=== PATIENT | female | born 1990 ===

== ENCOUNTER 2017-11-14 05:47 | Emergency (ER) | payer MEDICAID ==
[2017-11-14 05:47] VITALS: BMI 27.4
[2017-11-14 06:04] VITALS: TEMP 98.2; O2SAT 100
--- NOTE | 2017-11-14 06:21 | ED PDOC ---
"HPI: General Adult Time Seen by Provider: 11/14/17 05:49 Chief Complaint (Nursing): Abdominal Pain Chief Complaint (Provider): Pain History Per: Patient Additional History Per: EMS Additional Complaint(s): Skylar is a 27 y/o female with known opioid abuse and a history of kidney infections who was brought to the ED via EMS. According to EMS, she was unable to gain entry to her grandparent's house, so she called EMS because she wanted to come to the ER due to abdominal pain. She was walked in by EMS and immediately fell asleep in the stretcher. When asked why she came to the ER, she initially complained of right foot pain from walking in heels all day, but later complained of back pain and right flank pain. Patient is constantly changing her narrative and currently stating she can't walk to the bathroom despite walking into patient room. PMD: None Provided Past Medical History Reviewed: Historical Data, Nursing Documentation, Vital Signs Vital Signs: Last Vital Signs Temp 98.2 F 11/14/17 05:54 Pulse 77 11/14/17 05:54 Resp 17 11/14/17 05:54 BP 124/68 11/14/17 05:54 Pulse Ox 100 11/14/17 06:47 - Medical History PMH: Anxiety Denies: Diabetes, Hepatitis, HIV, HTN, Seizures, Sexually Transmitted Disease - Family History Family History: States: Unknown Family Hx - Social History Drugs: Opiates - Immunization History Hx Tetanus Toxoid Vaccination: Yes Hx Influenza Vaccination: No Hx Pneumococcal Vaccination: No - Home Medications Home Medications: Ambulatory Orders Medication Instructions Recorded oxyCODONE [oxyCODONE Immediate 30 mg PO BID 01/01/17 Release Tab] - Allergies Allergies/Adverse Reactions: Allergies Allergy/AdvReac Type Severity Reaction Status Date / Time No Known Allergies Allergy Verified 06/10/17 19:14 Review of Systems ROS Statement: Except As Marked, All Systems Reviewed And Found Negative Musculoskeletal: Positive for: Back Pain (back and right flank), Foot Pain ( right) Physical Exam - Reviewed Nursing Documentation Reviewed: Yes Vital Signs Reviewed: Yes - Physical Exam Appears: Positive for: Well, Non-toxic, No Acute Distress Head Exam: Positive for: ATRAUMATIC, NORMAL INSPECTION, NORMOCEPHALIC Skin: Positive for: Normal Color, Warm, Dry Eye Exam: Positive for: EOMI, Normal appearance, PERRL ENT: Positive for: Normal ENT Inspection Neck: Positive for: Normal, Painless ROM, Supple Cardiovascular/Chest: Positive for: Regular Rate, Rhythm. Negative for: Murmur Respiratory: Positive for: Normal Breath Sounds. Negative for: Respiratory Distress Gastrointestinal/Abdominal: Positive for: Normal Exam, Bowel Sounds, Soft. Negative for: Tenderness Back: Positive for: Normal Inspection Extremity: Positive for: Normal ROM. Negative for: Pedal Edema, Deformity Neurologic/Psych: Positive for: Alert, Oriented - ECG O2 Sat by Pulse Oximetry: 100 (RA) Pulse Ox Interpretation: Normal Medical Decision Making Medical Decision Making: Time: 6:02 Initial Impression: Malingering, Bed-Seeking Behavior, UTI Initial Plan: --Urine --Urine Dip --Tylenol Time: 6:47 --Patient is in room asleep lying flat on stomach. Patient was informed of negative udip/upreg. Patient then states that she was diagnosed with a kidney infection at [facility] despite negative urine studies. I informed the patient that the chances of having a significant kidney infection are unlikely given normal vital signs. Patient then again changes her story and states that she might be constipated from her suboxitin, states that she has not gone to the bathroom in 7 days. Will draw labs to evaluate for leukocytosis , renal sono to r/o significant kidney abnormality, and xray abd to evaluate for constipation. When I told the patient the plan, she put her jacket over herself and fell back to sleep immediately. 0700 Will endorse to day team Dr. Abdullahi. Scribe Attestation: Documented by Randal Jones, acting as a scribe for Dr. Jose Miner MD Provider Scribe Attestation: All medical record entries made by the Scribe were at my direction and personally dictated by me. I have reviewed the chart and agree that the record accurately reflects my personal performance of the history, physical exam, medical decision making, and the department course for this patient. I have also personally directed, reviewed, and agree with the discharge instructions and disposition. Disposition - Clinical Impression Clinical Impression: Abdominal pain - Patient ED Disposition Is Patient to be Admitted: No - Disposition Referrals: [facility] [Outside] Disposition: Transfer of Care Disposition Time: 06:47 Condition: STABLE Forms: [employer] - Payments Anytime | Anywhere ([place]) Patient Signed Over To: Waldemar Abdullahi III Handoff Comments: pending workup"
--- NOTE | 2017-11-14 07:08 | ED PDOC ---
- Laboratory Results Result Diagrams: 11/14/17 07:59 11/14/17 07:59 - ECG O2 Sat by Pulse Oximetry: 100 (RA) Medical Decision Making Medical Decision Making: endorsed at 7am pending re-eval and labs Time: 1250 CT Abdomen FINDINGS: LOWER THORAX: Unremarkable. LIVER: Hepatic steatosis. No gross lesion or ductal dilatation. GALLBLADDER AND BILE DUCTS: Unremarkable. PANCREAS: Unremarkable. No gross lesion or ductal dilatation. SPLEEN: Unremarkable. ADRENALS: Unremarkable. No mass. KIDNEYS AND URETERS: Unremarkable. No hydronephrosis. No solid mass. VASCULATURE: Unremarkable. No aortic aneurysm. BOWEL: Fecal impaction/ constipation without mechanical obstruction. APPENDIX: No abnormalities to suggest acute appendicitis. No right lower quadrant inflammatory processes identified. PERITONEUM: Unremarkable. No free fluid. No free air. LYMPH NODES: Unremarkable. No enlarged lymph nodes. BLADDER: Unremarkable. REPRODUCTIVE: Right adnexal cyst 2.5 cm. BONES: No acute fracture. OTHER FINDINGS: None. IMPRESSION: No acute findings related to/accounting for the clinical presentation. Additional benign and/or incidental findings described above. Patient stable for discharge home, instructed to follow up with PCP in 1-2 days. Crisis saw patient and cleared for discharge. Disposition - Clinical Impression Clinical Impression: Abdominal pain - POA Present On Arrival: None - Disposition Referrals: [facility] [Outside] Disposition: Routine/Home Disposition Time: 12:53 Condition: STABLE Instructions: Acute Abdominal Pain (ED) Forms: [employer] (Upper Sor[place])
[2017-11-14 08:10] LABS: SQUAMOUS EPITHIAL 29 /hpf (0-5); URINE BACTERIA RARE (<OCC); URINE BILIRUBIN NEGATIVE (NEGATIVE); URINE BLOOD NEGATIVE (NEGATIVE); URINE CLARITY CLOUDY (Clear); URINE COLOR AMBER (YELLOW); URINE GLUCOSE (UA) NEG (Normal); URINE LEUKOCYTE ESTERASE NEG Leu/uL (Negative); URINE NITRATE NEGATIVE (NEGATIVE); URINE PROTEIN NEGATIVE (NEGATIVE)
[2017-11-14 08:13] LABS: BASO # 0.1 K/uL (0.0-0.2); BASO % 0.6 % (0.0-2.0); EOS # 0.3 K/uL (0.0-0.7); EOS % 2.3 % (0.0-4.0); HEMOGLOBIN 12.8 g/dL (12.0-16.0); LYMPH # 3.2 K/uL (1.0-4.3); LYMPH % 22.6 % (20.0-40.0); MEAN CORPUSCULAR HEMOGLOBIN 30.2 pg (27.0-31.0); MEAN CORPUSCULAR HGB CONC 33.6 g/dL (33.0-37.0); MEAN PLATELET VOLUME 8.8 fl (7.2-11.7); MONO # 0.9 K/uL (0.0-0.8); MONO % 6.5 % (0.0-10.0); NEUT # 9.7 K/uL (1.8-7.0); RBC 4.23 Mil/uL (3.80-5.20); RED CELL DISTRIBUTION WIDTH 13.5 % (11.5-14.5); WHITE BLOOD COUNT 14.2 K/uL (4.8-10.8)
[2017-11-14 08:24] LABS: BLOOD UREA NITROGEN 8 mg/dl (7-17); CALCIUM 9.5 mg/dL (8.4-10.2); GFR AFRICAN-AMERICAN > 60; GFR NON-AFRICAN AMERICAN > 60
--- NOTE | 2017-11-14 10:09 | RAD ---
PROCEDURE: Radiographs of the chest and abdomen (obstructive series) HISTORY: No BM in 7 days COMPARISON: No prior. TECHNIQUE: AP radiograph of the chest, with upright and supine radiographs of the abdomen. FINDINGS: CHEST: Lungs: Clear. Cardiovascular: Normal size heart. No pulmonary vascular congestion. Pleura: No pleural fluid. No pneumothorax. Other findings: None. ABDOMEN AND PELVIS: Bowel: No evidence acute mechanical bowel obstruction. . Moderate amount of stool is seen throughout the colon consistent with constipation. . There may be mild secondary ileus. Free air: No evidence of free intraperitoneal air. . Bones: Unremarkable. Other findings: None. IMPRESSION: No acute cardiopulmonary disease. Findings consistent with constipation with questionable secondary mild ileus
[2017-11-14] MEDS ORDERED: Iohexol 300 100 ML IJ ONE (10:35)
--- NOTE | 2017-11-14 10:48 | US ---
PROCEDURE: Ultrasound of the Kidneys HISTORY: R flank pain COMPARISON: None available. TECHNIQUE: Sonogram of the kidneys. FINDINGS: RIGHT KIDNEY: Right kidney measures approximate 11.6 x 5.83.2 cm. Normal in size, contour and echogenicity. No stone, solid mass lesion or hydronephrosis visualized. LEFT KIDNEY: Left kidney measures approximate 11.4 x 5.6 x 4.3 cm. Normal in size, contour and echogenicity. No stone, solid mass lesion or hydronephrosis visualized. OTHER FINDINGS: None. IMPRESSION: Unremarkable renal sonogram. No evidence of shadowing calculi or hydronephrosis.
[2017-11-14 11:31] VITALS: BP 102/56; PULSE 66; RESP 16
--- NOTE | 2017-11-14 11:38 | CT ---
PROCEDURE: CT Abdomen and Pelvis with contrast HISTORY: Abdominal pain, leukocytosis. COMPARISON: None. TECHNIQUE: Contrast dose: 95 cc Omnipaque 300 Radiation dose: Total exam DLP = 941.72 mGy-cm. This CT exam was performed using one or more of the following dose reduction techniques: Automated exposure control, adjustment of the mA and/or kV according to patient size, and/or use of iterative reconstruction technique. FINDINGS: LOWER THORAX: Unremarkable. LIVER: Hepatic steatosis. No gross lesion or ductal dilatation. GALLBLADDER AND BILE DUCTS: Unremarkable. PANCREAS: Unremarkable. No gross lesion or ductal dilatation. SPLEEN: Unremarkable. ADRENALS: Unremarkable. No mass. KIDNEYS AND URETERS: Unremarkable. No hydronephrosis. No solid mass. VASCULATURE: Unremarkable. No aortic aneurysm. BOWEL: Fecal impaction/ constipation without mechanical obstruction. APPENDIX: No abnormalities to suggest acute appendicitis. No right lower quadrant inflammatory processes identified. PERITONEUM: Unremarkable. No free fluid. No free air. LYMPH NODES: Unremarkable. No enlarged lymph nodes. BLADDER: Unremarkable. REPRODUCTIVE: Right adnexal cyst 2.5 cm. BONES: No acute fracture. OTHER FINDINGS: None. IMPRESSION: No acute findings related to/accounting for the clinical presentation. Additional benign and/or incidental findings described above.
== END 2017-11-14 16:00 | disposition home or self-care (01) ==
LOC: H.ER 05:47
DX: R10.9 Unspecified abdominal pain (principal); F11.10 Opioid abuse, uncomplicated; F41.9 Anxiety disorder, unspecified; Z76.5 Malingerer [conscious simulation]
CPT/HCPCS: 74022; 74177; 76770; 80048; 81003; 81025; 85025; 96374; 99284; J1170; Q9967